=== PATIENT | female | born 1945 | race Caucasian/White ===

== ENCOUNTER 2018-01-26 05:04 | Inpatient (IN) ==
[2018-01-22 14:35] LABS: Appearance,Urine CLEAR; Bilirubin,Urine NEG (NEG); Color,Urine STRAW; Glucose,Urine (UA) NEGATIVE (NEG); Leukocyte Esterase,Urine NEG /uL (NEG); Protein,Urine NEG (NEG); Specific Gravity,Urine 1.009 (1.000-1.035); Urine Blood NEG mg/dL (<0.03); Urobilinogen,Urine NEG (NEG)
[2018-01-22 14:46] LABS: Basophils # (Auto) 0 K/mcL (0.0-0.3); Basophils % (Auto) 0.9 % (0.0-2.0); Eosinophils # (Auto) 0.2 K/mcL (0.0-0.7); Eosinophils % (Auto) 4.4 % (0.0-7.0); Lymphocytes # (Auto) 1.5 K/mcL (1.5-4.8); Lymphocytes % (Auto) 31.5 % (15.5-49.0); Mean Cell Volume 99.8 fL (80.0-100.0); Mean Corpuscular HGB Conc 33.8 g/dL (31.0-36.0); Mean Corpuscular Hemoglobin 33.8 pg (26.0-34.0); Monocytes # (Auto) 0.4 K/mcL (0.1-0.9); Monocytes % (Auto) 8.2 % (1.0-12.0); Platelet Count 234 K/mcL (140-440); Red Cell Distribution Width 12.3 % (11.5-14.5)
[2018-01-22 14:51] LABS: Blood Urea Nitrogen 31 mg/dl (8-23)
[2018-01-26] MEDS ORDERED: oxyCODONE 10 MG TAB.ER.12H PO SCH (07:00)
[2018-01-26] MEDS ORDERED: ACETAMINOPHEN 500 MG TABLET PO SCH (07:00)
[2018-01-26] MEDS ORDERED: PREGABALIN 75 MG CAPSULE PO SCH (07:00)
[2018-01-26] MEDS ORDERED: ceFAZolin 1 GM VIAL IV SCH (07:00)
[2018-01-26] MEDS ORDERED: KETOROLAC 30 MG, ROPIVACAINE HCL/PF 49.5 ML, EPINEPHrine 0.5 MG, 0.9 % SODIUM CHLORIDE ... IV SCH (07:00)
[2018-01-26] MEDS ORDERED: GLYCOPYRROLATE 0.2 MG/ML VIAL IV ONE (07:40)
[2018-01-26] MEDS ORDERED: PHENYLEPHRINE 10 MG/ML VIAL IV ONE (07:40)
[2018-01-26] MEDS ORDERED: ePHEDrine 50 MG/ML AMPUL IV ONE (07:40)
[2018-01-26] MEDS ORDERED: TRANEXAMIC ACID 1,000 MG/10 ML VIAL IV ONE ×2 (07:40→09:53)
[2018-01-26] MEDS ORDERED: PROPOFOL 200 MG/20 ML VIAL IV ONE (07:40)
[2018-01-26] MEDS ORDERED: MIDAZOLAM 2 MG/2 ML VIAL IV ONE (07:40)
[2018-01-26] MEDS ORDERED: DEXAMETHASONE 10 MG/ML VIAL IV ONE (07:40)
[2018-01-26] MEDS ORDERED: ROPIVACAINE HCL/PF 30 ML VIAL IJ ONE (07:40)
[2018-01-26] MEDS ORDERED: LIDOCAINE HCL/PF 100 MG/5 ML SYRINGE IV ONE (07:40)
[2018-01-26] MEDS ORDERED: ONDANSETRON 4 MG/2 ML VIAL IV ONE (07:40)
[2018-01-26] MEDS ORDERED: GENTAMICIN SULFATE 800 MG/20 ML VIAL IR ONE (08:11)
[2018-01-26] MEDS ORDERED: MEPERIDINE 25 MG/ML SYRINGE IV PRN (09:12)
[2018-01-26] MEDS ORDERED: ONDANSETRON 4 MG/2 ML VIAL IV PRN ×2 (09:12→09:53)
[2018-01-26] MEDS ORDERED: diphenhydrAMINE 50 MG/ML VIAL IV PRN (09:12)
[2018-01-26] MEDS ORDERED: PROMETHAZINE 25 MG/ML VIAL IV PRN (09:12)
[2018-01-26] MEDS ORDERED: LACTATED RINGERS 250 ML IV PRN (09:12)
[2018-01-26] MEDS ORDERED: FLUMAZENIL 0.1 MG/ML ML IV PRN (09:12)
[2018-01-26] MEDS ORDERED: NALOXONE HCL 0.4 MG/ML VIAL IV PRN (09:12)
[2018-01-26] MEDS ORDERED: BENZOCAINE/MENTHOL 1 LOZENGE PO PRN ×2 (09:12→09:53)
[2018-01-26] MEDS ORDERED: fentaNYL 100 MCG/2 ML VIAL IV PRN (09:12)
[2018-01-26] MEDS ORDERED: IPRATROPIUM/ALBUTEROL 3 ML AMPUL.NEB NEB PRN (09:12)
[2018-01-26] MEDS ORDERED: LACTATED RINGERS 1,000 ML IV SCH (09:15)
--- NOTE | 2018-01-26 09:50 | XRay Report ---
HISTORY: Reason for Exam:post op FINDINGS: There is a well positioned total knee prosthesis. There is no fracture or abnormal soft tissue calcification. IMPRESSION: Well-positioned left knee prosthesis Interpreted and Authenticated by: Judson Trent 01/26/18
[2018-01-26] MEDS ORDERED: MAGNESIUM HYDROXIDE 30 ML ORAL.SUSP PO PRN (09:53)
[2018-01-26] MEDS ORDERED: BISACODYL 10 MG SUPP.RECT PR PRN (09:53)
[2018-01-26] MEDS ORDERED: HYDROmorphone 2 MG/ML VIAL IV PRN (09:53)
[2018-01-26] MEDS ORDERED: FLEETS ADULT ENEMA PR PRN (09:53)
[2018-01-26] MEDS ORDERED: POLYETHYLENE GLYCOL 3350 17 GM PACKET PO PRN (09:53)
[2018-01-26] MEDS ORDERED: TEMAZEPAM 15 MG CAPSULE PO PRN (09:53)
[2018-01-26] MEDS ORDERED: ACETAMINOPHEN 325 MG TABLET PO PRN (09:53)
--- NOTE | 2018-01-26 10:13 | Brief Operative Note ---
Date of procedure: 01/26/18 Pre-op diagnosis: Left knee djd severe Post-op diagnosis: same Procedure: left tka with raj robot Grafts/Implants: Yes Anesthesia: GETA Complications: none Complications Description: 01/26/18 10:13 none Surgeon: Samson Oakes Field Services Director: Jaswant Powell Estimated blood loss (cc): 10 Tourniquet Time (Minutes): 50 Specimens Removed/Pathology: none sent Condition: stable Disposition: PACU
[2018-01-26] MEDS: 0.45 % SODIUM CHLORIDE 1,000 ML IV SCH ×2 (10:18→20:03)
--- NOTE | 2018-01-26 11:47 | Operative Note ---
DATE OF OPERATION: 01/26/2018 PREOPERATIVE DIAGNOSIS: Left knee degenerative arthritis. POSTOPERATIVE DIAGNOSIS: Left knee degenerative arthritis. PROCEDURE: Left total knee arthroplasty. SURGEON: Samson Oakes M.D. LASER SPECIALIST: Jaswant Powell PA-C. ANESTHESIA: General LMA anesthesia. COMPLICATIONS: None. DESCRIPTION OF PROCEDURE: The patient was brought to the operating room and put to sleep with general LMA anesthesia. Once asleep, the patient had the left leg sterilely prepped and draped in the usual sterile fashion. Once this was done, we then made a midline incision. A timeout had been performed. The knee showed severe arthritis after a mid vastus approach. We exposed the joint, subluxed the patella laterally and performed a robotic total knee by placing the pins above and below the knee. We registered the center of rotation, medial and lateral malleolus, intra-articular pins, and thirty points on the femur and tibia. Once this was all done, we then balanced the knee, both in flexion and extension. She lacked 12 degrees of extension, and because of this we made the cut 2 mm shorter in extension to give her the extra extension. We also removed spurs posteriorly, removed the remnants of the meniscus. The robot was brought in, registered, and then we cut away the bone as preoperatively planned. A size 5 tibial baseplate, rotation set by the robot. Femoral component was placed and a 9 mm insert placed. The patient tolerated this well. We then irrigated thoroughly. Once this was done and the components were trialed, we then cemented into place the above-mentioned sizes. We __ the mid vastus approach with #1 Stratafix. We irrigated thoroughly and then closed the knee with #1 Stratafix x2. We took the knee through range of motion once more. We closed the skin with 2-0 Vicryl and adhesive closure. The patient tolerated this well without complication. RBH:aleksandr Job ID: [id number] Doc ID: [id number] Samson Oakes MD
[2018-01-26] MEDS: KETOROLAC 15 MG/ML VIAL IV SCH ×3 (12:08→23:42)
[2018-01-26] MEDS: 0.9 % SODIUM CHLORIDE 10 ML SYRINGE IV SCH ×2 (14:09→22:12)
[2018-01-26] MEDS: ceFAZolin 1 GM VIAL IV SCH ×2 (16:22→23:41)
[2018-01-26] MEDS: HYDROcodone/APAP 10/325MG TABLET PO PRN ×2 (18:17→20:34)
[2018-01-26] MEDS: MAGNESIUM OXIDE 400 MG TABLET PO SCH (20:04)
[2018-01-26] MEDS: VENLAFAXINE 75 MG TABLET PO SCH (20:04)
[2018-01-26] MEDS: DOCUSATE SODIUM 100 MG CAPSULE PO SCH (20:04)
[2018-01-26] MEDS: CALCIUM W/VIT D3 500 MG TABLET PO SCH (20:04)
[2018-01-26] MEDS: ASPIRIN 325 MG ENTERIC COATED TABLET PO SCH (20:04)
[2018-01-26] MEDS ORDERED: SENNOSIDES 1 TABLET PO SCH (21:00)
[2018-01-26] MEDS ORDERED: NON FORMULARY MEDICATION 1 DOSE MISCELL (Acetaminophen [Acetaminophen Er] 650 MG) PO SCH (21:00)
[2018-01-26] MEDS ORDERED: SIMVASTATIN 40 MG TABLET PO SCH (21:00)
[2018-01-27] MEDS: KETOROLAC 15 MG/ML VIAL IV SCH ×2 (05:44→11:58)
[2018-01-27] MEDS: 0.9 % SODIUM CHLORIDE 10 ML SYRINGE IV SCH ×2 (05:44→15:35)
[2018-01-27] MEDS: 0.45 % SODIUM CHLORIDE 1,000 ML IV SCH (05:45)
[2018-01-27] MEDS: HYDROcodone/APAP 10/325MG TABLET PO PRN ×3 (05:54→12:04)
[2018-01-27] MEDS ORDERED: LEVOTHYROXINE 100 MCG TABLET PO SCH (07:30)
[2018-01-27] MEDS: ASPIRIN 325 MG ENTERIC COATED TABLET PO SCH (08:50)
[2018-01-27] MEDS: CALCIUM W/VIT D3 500 MG TABLET PO SCH (08:50)
[2018-01-27] MEDS: MAGNESIUM OXIDE 400 MG TABLET PO SCH (08:50)
[2018-01-27] MEDS: VENLAFAXINE 75 MG TABLET PO SCH (08:50)
[2018-01-27] MEDS: DOCUSATE SODIUM 100 MG CAPSULE PO SCH (08:50)
[2018-01-27] MEDS ORDERED: LISINOPRIL 20 MG TABLET PO SCH (09:00)
[2018-01-27] MEDS ORDERED: VERAPAMIL HCL 80 MG TABLET PO SCH (09:00)
[2018-01-27] MEDS ORDERED: TORSEMIDE 10 MG TABLET PO SCH (09:00)
--- NOTE | 2018-01-27 12:45 | Discharge Summary ---
Ortho Discharge - TKA - Patient Instructions Diet: Regular Diet Activity: activity as tolerated, weight bearing as tolerated Total Knee Protocol: For Total Knee: Start ROM PAMELA with stationary bike or rocking chair. Work on gaining full extension of knee. Posterior dislocation precautions provided. Hip abductor strengthening and gait training instructions provided. Apply Cryocuff as instructed. Dressing Care: Aniyhael Ag - leave on for 5 days Additional Instructions: Do the exercises at home that physical therapy gave you. Weight bearing as tolerated. Activity as tolerated. Take your prescription, photo ID, insurance cards, and current medication list with you to your first physical therapy appointment. Take your prescription to cotton picker any medication or equipment (such as walker, crutches, toilet riser or C.P.M.) Wear comfortable clothing for your physical therapy. Consider premedicating with pain medication 45 minutes prior to physical therapy appointment. You have Dermabond (a waterproof dressing with a mesh-like appearance) covering your surgical incision. Leave open to air. You may start showering on post op day #2, which is Friday, December 31. The Dermabond dressing can get wet. Do not scrub dressing. Do not use soaps, creams , or lotions over the dressing. Pat dry. No bathing or soaking in hot tub until released by surgeon. To avoid constipation while taking any narcotic pain medication, take an over the counter stool softener/laxative. Use your Cryocuff or ice packs as directed, on for 20 minutes at a time throughout the day. This and elevation will help with pain and swelling. Call your physician for fevers above 100.5 or pain not controlled by medication. Your prescriptions are with your discharge information. Some medications were electronically transmitted to your pharmacy of choice. You will be taking Aspirin 325 mg 2 x daily for 30 days to prevent blood clots. - Follow Up Plan Follow Up Appointments: Jaswant Powell PA-C [Physician Egg Trayer] - 02/10/18 1:40 pm Disposition: Hospice - Home Prognosis: Good Rehab Potential: Good I certify that the patient requires SNF services: No Overall status at discharge: patient is progressing back to baseline - Orders For Discharge Prescriptions: HYDROcodone/APAP 10/325MG [[place] 10-325Mg] 10 - 20 mg PO Q4HP PRN #60 tab PRN Reason: Pain Level 3-6 Additional Discharge Orders: Physical Therapy at Discharge - TKA Location: Determined By Patient Toilet Riser Discharge Order Location: Determined By Patient Walker Location: Determined By Patient
== END 2018-01-27 15:10 | disposition hospice, home (50) | DRG 470 ==
LOC: MEDSUR 05:04
PROVIDERS: ADMIT Orthopaedic Surgery; ATTEND Orthopaedic Surgery

== ENCOUNTER 2018-11-23 10:34 | Inpatient (IN) ==
[2018-11-17 16:13] LABS: Appearance,Urine CLEAR; Bacteria,Urine 0 /hpf (0); Bilirubin,Urine NEG (NEG); Color,Urine STRAW; Glucose,Urine (UA) NEGATIVE (NEG); Leukocyte Esterase,Urine NEG /uL (NEG); Mucus,Urine FEW /hpf (0); Protein,Urine NEG (NEG); Urine Blood 0.03 mg/dL (<0.03); Urine Hyaline Cast 13 /lpf (0-2); Urine RBC 1 /hpf (0-1); Urine Squamous Epithelial Cell < 1 /hpf (0-4); Urine WBC 1 /hpf (0-4); Urobilinogen,Urine NEG (NEG)
[2018-11-17 17:14] LABS: Basophils # (Auto) 0 K/mcL (0.0-0.3); Basophils % (Auto) 0.6 % (0.0-2.0); Eosinophils # (Auto) 0.4 K/mcL (0.0-0.7); Granulocytes % (Auto) 64.3 % (38.0-78.0); Lymphocytes # (Auto) 1.3 K/mcL (1.5-4.8); Lymphocytes % (Auto) 21.5 % (15.5-49.0); Mean Cell Volume 99.7 fL (80.0-100.0); Mean Corpuscular HGB Conc 33.4 g/dL (31.0-36.0); Monocytes # (Auto) 0.4 K/mcL (0.1-0.9); Monocytes % (Auto) 7.6 % (1.0-12.0); Platelet Count 242 K/mcL (140-440)
[2018-11-17 17:36] LABS: Blood Urea Nitrogen 25 mg/dl (8-23)
[~2018-11-23 10:34] MED LIST: ACETAMINOPHEN 500 MG TABLET PO SCH; PREGABALIN 75 MG CAPSULE PO SCH; ceFAZolin 2 GM in DEXTROSE 5% IN WATER 50 ML IV SCH; oxyCODONE 10 MG TAB.ER.12H PO SCH
[2018-11-23] MEDS ORDERED: PROPOFOL 200 MG/20 ML VIAL IV ONE (13:35)
[2018-11-23] MEDS ORDERED: PHENYLEPHRINE 10 MG/ML VIAL ONE (13:35)
[2018-11-23] MEDS ORDERED: GLYCOPYRROLATE 0.2 MG/ML VIAL IV ONE (13:35)
[2018-11-23] MEDS ORDERED: LIDOCAINE HCL/PF 100 MG/5 ML SYRINGE IV ONE (13:35)
[2018-11-23] MEDS ORDERED: DEXAMETHASONE 10 MG/ML VIAL ONE (13:35)
[2018-11-23] MEDS ORDERED: SUCCINYLCHOLINE 20 MG/ML ML IV ONE (13:35)
[2018-11-23] MEDS ORDERED: fentaNYL 100 MCG/2 ML VIAL IV ONE (13:35)
[2018-11-23] MEDS ORDERED: ePHEDrine 50 MG/ML AMPUL IV ONE (13:35)
[2018-11-23] MEDS ORDERED: MIDAZOLAM 5 MG/5 ML VIAL ONE (13:35)
[2018-11-23] MEDS ORDERED: ONDANSETRON 4 MG/2 ML VIAL ONE (13:35)
[2018-11-23] MEDS ORDERED: GENTAMICIN SULFATE 800 MG/20 ML VIAL IR ONE (14:08)
[2018-11-23] MEDS ORDERED: FLUMAZENIL 0.1 MG/ML ML IV PRN (14:20)
[2018-11-23] MEDS ORDERED: MEPERIDINE 25 MG/ML SYRINGE IV PRN (14:20)
[2018-11-23] MEDS ORDERED: ONDANSETRON 4 MG/2 ML VIAL IV PRN ×2 (14:20→15:50)
[2018-11-23] MEDS ORDERED: METHOCARBAMOL 1,000 MG/10 ML VIAL IV PRN (14:20)
[2018-11-23] MEDS ORDERED: IPRATROPIUM/ALBUTEROL 3 ML AMPUL.NEB NEB PRN (14:20)
[2018-11-23] MEDS ORDERED: METOPROLOL TARTRATE 5 MG/5 ML VIAL IV PRN (14:20)
[2018-11-23] MEDS ORDERED: NALOXONE HCL 0.4 MG/ML VIAL IV PRN (14:20)
[2018-11-23] MEDS ORDERED: ATROPINE SULFATE 0.4 MG/ML VIAL IV PRN (14:20)
[2018-11-23] MEDS ORDERED: diphenhydrAMINE 50 MG/ML VIAL IV PRN (14:20)
[2018-11-23] MEDS ORDERED: ePHEDrine 50 MG/ML AMPUL IV PRN (14:20)
[2018-11-23] MEDS ORDERED: PROMETHAZINE 25 MG/ML VIAL IV PRN (14:20)
[2018-11-23] MEDS ORDERED: LACTATED RINGERS 1,000 ML IV SCH (14:30)
--- NOTE | 2018-11-23 15:45 | Brief Operative Note ---
Date of procedure: 11/23/18 Pre-op diagnosis: right shoulder rca and bicep tear Post-op diagnosis: same Procedure: right reverse tsa with bicep tear repair or tenodesis Grafts/Implants: Yes Anesthesia: CLARITZA Surgeon: Samson Oakes Registered Diet Technician: Jaswant Powell Estimated blood loss (cc): 100 Specimens Removed/Pathology: none sent Condition: stable Disposition: PACU
[2018-11-23] MEDS ORDERED: MAGNESIUM HYDROXIDE 30 ML ORAL.SUSP PO PRN (15:50)
[2018-11-23] MEDS ORDERED: POLYETHYLENE GLYCOL 3350 17 GM PACKET PO PRN (15:50)
[2018-11-23] MEDS ORDERED: BENZOCAINE/MENTHOL 1 LOZENGE PO PRN (15:50)
[2018-11-23] MEDS ORDERED: TRANEXAMIC ACID 1,000 MG/10 ML VIAL IV SCH (15:50)
[2018-11-23] MEDS ORDERED: HYDROmorphone 2 MG/ML VIAL IV PRN (15:50)
[2018-11-23] MEDS ORDERED: BISACODYL 10 MG SUPP.RECT PR PRN (15:50)
[2018-11-23] MEDS ORDERED: FLEETS ADULT ENEMA PR PRN (15:50)
[2018-11-23] MEDS ORDERED: ACETAMINOPHEN 325 MG TABLET PO PRN (15:50)
[2018-11-23] MEDS: fentaNYL 100 MCG/2 ML VIAL IV PRN ×4 (15:59→16:11)
--- NOTE | 2018-11-23 16:15 | Operative Note ---
DATE OF OPERATION: 11/23/2018 PREOPERATIVE DIAGNOSES: Right shoulder rotator cuff arthropathy and a biceps tendinopathy or tear. POSTOPERATIVE DIAGNOSES: Right shoulder rotator cuff arthropathy and a biceps tendinopathy or tear. PROCEDURE: Right reverse total shoulder arthroplasty with a biceps tenodesis. SURGEON: Samson Oakes M.D. CUP SETTER LOCKSTITCH: Jaswant Powell PA-C. ANESTHESIA: General LMA anesthesia. COMPLICATIONS: None. DESCRIPTION OF PROCEDURE: The patient was brought to the operating room and put to sleep with general LMA anesthesia. Once asleep, the patient had the right shoulder sterilely prepped and draped in the usual sterile fashion. A timeout was performed. We confirmed the operative site by initials, consent form and x-rays. Once done, we then proceeded with the case. A deltopectoral approach was placed, retracting the cephalic vein laterally. We exposed the anterior capsule. The subscap was released and subluxed the humeral head anteriorly. We made our cut at 135 degree angle with 20 degrees of retroversion. Once done, we placed a protective plate and subluxed the head posteriorly. We then reamed centrally on the humeral head and released the capsule with a 360 degree capsular release, as well as a biceps tendon release. There was noted to be a complete tear of the supraspinatus and infraspinatus. We reamed up to the size 36. A Metaglene was placed at 10 degrees of inclination with a 32 mm central screw. Three additional screws measuring 24, 32 and 32 were placed with a 36 mm humeral head with a glenosphere with 2 mm of offset and 2 mm of the eccentricity. Once this was placed, we irrigated thoroughly and then prepared the humerus. This was broached up to the size of 10. We then placed a size 10 after trialing the standard thickness poly. We placed a small amount of cement distally for fixation purposes because of the soft bone. We placed the stem and placed a standard thickness poly in 20 degrees of retroversion. This was reduced and this gave excellent stability with full range of motion achieved. We irrigated thoroughly. We did not repair the subscap. We did repair the biceps tendon to the pectoralis major with [id number] stitches x2. Once this was repaired using Ethibond stitch, we irrigated thoroughly and then closed the deltoid pec interval with 2-0 Vicryl. The skin was closed with 2-0 Vicryl and adhesive closure. The patient tolerated this well. There was no complication. A DonJoy sling was fitted and given to the patient at the end of the case. ZACHARY:aleksandr Job ID: [id number] Doc ID: [id number] Samson Oakes MD
[2018-11-23] MEDS: 0.45 % SODIUM CHLORIDE 1,000 ML IV SCH (16:25)
--- NOTE | 2018-11-23 16:33 | XRay Report ---
CLINICAL INFORMATION: Post-OP Total Shoulder COMPARISON: None. FINDINGS: Total shoulder prostheses is anatomically aligned. Acromioplasty changes noted. No osseous abnormality. Soft tissue swelling seen as expected. IMPRESSION: Negative Interpreted and Authenticated by: Juan Daniel Drew 11/23/18
[2018-11-23] MEDS: KETOROLAC 15 MG/ML VIAL IV PRN (18:00)
[2018-11-23] MEDS: HYDROCODONE/APAP 7.5/325MG TABLET PO PRN (20:09)
[2018-11-23] MEDS: DOCUSATE SODIUM 100 MG CAPSULE PO SCH (20:58)
[2018-11-23] MEDS: MAGNESIUM OXIDE 400 MG TABLET PO SCH (20:59)
[2018-11-23] MEDS: VENLAFAXINE 75 MG TABLET PO SCH (20:59)
[2018-11-23] MEDS: CALCIUM W/VIT D3 500 MG TABLET PO SCH (20:59)
[2018-11-23] MEDS ORDERED: SENNOSIDES 1 TABLET PO SCH (21:00)
[2018-11-23] MEDS ORDERED: VERAPAMIL HCL 80 MG TABLET PO SCH (21:00)
[2018-11-23] MEDS ORDERED: ACETAMINOPHEN 325 MG TABLET PO SCH (21:00)
[2018-11-23] MEDS ORDERED: TEMAZEPAM 15 MG CAPSULE PO PRN (21:00)
[2018-11-23] MEDS ORDERED: SIMVASTATIN 40 MG TABLET PO SCH (21:00)
[2018-11-23] MEDS: ceFAZolin 1 GM VIAL IV SCH (21:06)
[2018-11-24] MEDS: 0.9 % SODIUM CHLORIDE 10 ML SYRINGE IV SCH ×2 (00:49→05:32)
[2018-11-24] MEDS: HYDROCODONE/APAP 7.5/325MG TABLET PO PRN ×3 (00:50→09:55)
[2018-11-24] MEDS: KETOROLAC 15 MG/ML VIAL IV PRN (00:51)
[2018-11-24] MEDS: 0.45 % SODIUM CHLORIDE 1,000 ML IV SCH (00:59)
[2018-11-24] MEDS: ceFAZolin 1 GM VIAL IV SCH (05:30)
[2018-11-24] MEDS ORDERED: LEVOTHYROXINE 100 MCG TABLET PO SCH (07:30)
--- NOTE | 2018-11-24 07:31 | Orthopedic Progress Note ---
Subjective Patient information: Note initiated : 11/24/18 at 7:30 am Service Date, if different from initiated Date: [] Patient: Shakira Cisneros 73 y/o F admitted on 11/23/18 for Right Reverse Total Shoulder Arthroplasty with. Chief Complaint: [Pt is stable this morning on post operative day 1 without any significant concerns or complaints. Patients vital signs have remained stable. Patients dressing is dry and is grossly intact from a neur ovascular and motor standpoint. Patients 10 point ROS is otherwise negative. ] Objective Vital signs: Vital Signs Temp Pulse Pulse Pulse Resp BP Pulse Ox 11/24/18 07:05 16 99 11/24/18 04:00 98.4 F 64 18 124/68 93 11/24/18 02:24 72 18 125/70 93 11/24/18 02:22 76 18 131/72 94 11/24/18 00:30 97.6 F 70 12 115/65 93 11/23/18 20:00 72 11/23/18 19:00 73 18 121/69 93 11/23/18 18:30 70 18 130/72 93 11/23/18 18:00 91 H 16 128/73 91 11/23/18 17:45 74 16 130/69 11/23/18 17:30 74 16 135/75 96 11/23/18 17:15 75 16 138/71 96 11/23/18 17:00 72 16 140/74 96 11/23/18 16:45 75 16 136/65 95 11/23/18 16:30 74 16 146/77 96 11/23/18 16:15 97.4 F 73 11 L 144/68 98 11/23/18 16:00 97.5 F 75 12 133/56 95 11/23/18 15:45 97.4 F 75 15 148/80 100 11/23/18 15:30 97.3 F 69 12 142/80 100 11/23/18 15:25 70 13 139/76 100 11/23/18 15:20 73 11 L 126/71 100 11/23/18 15:15 97.3 F 74 17 123/70 99 11/23/18 10:45 97.8 F 16 130/74 98 Intake and Output 11/23/18 11/24/18 11/24/18 21:59 05:59 13:59 Intake Total 3400 1057 Output Total 275 150 Balance 3125 907 Intake: IV 857 Sodium Chloride 0.45% 1,000 ml 857 @ 100 mls/hr IV .Q10H LORENA Rx#: [id number] Oral 800 200 IV - Manual Only 2600 Output: Void Amount 275 150 Other: Meal had egg sandwich and yogurt; tolerated well Percent of Meal Consumed 100% Feeding Ability Independent # Voids 1 Weight 158 lb Intake & Output: Intake & Output 11/23/18 11/24/18 11/24/18 21:59 05:59 13:59 Intake Total 3400 1057 Output Total 275 150 Balance 3125 907 Weight 158 lb Intake: IV 857 Sodium Chloride 0.45% 1,000 ml 857 @ 100 mls/hr IV .Q10H LORENA Rx#: [id number] Oral 800 200 IV - Manual Only 2600 Output: Void Amount 275 150 Other: Meal had egg sandwich and yogurt; tolerated well Percent of Meal Consumed 100% Feeding Ability Independent # Voids 1 Incision: Yes healing Incision clean and dry: Yes Dressing: Yes clean Weight bearing status: full Neurological exam IM: Yes motor sensory intact, Yes neurovascular intact Extremities exam IM: Yes neurovascular intact - Labs CBC & BMP: 11/17/18 14:37 11/17/18 14:37 Labs: 11/17/18 14:37 Hgb 12.0 Hct 35.9 L Assessment and Plan (1) History of reverse total replacement of right shoulder joint The patient has been educated regarding dressing care, Physical Therapy recommendations, home exercises, restrictions, and follow up appointments. The patient has had all necessary DME prescribed. The patient has remained relativel y stable during their hospital course. Status: Acute
--- NOTE | 2018-11-24 07:36 | Discharge Summary ---
Ortho Discharge - TSA - Patient Instructions Diet: Regular Diet Activity: activity as tolerated, weight bearing as tolerated Total Shoulder Protocol: Leave immobilizer in place except for bathing and ROM. Abduction pillow. Continue to wear sling until seen by physician. Codman Pendulum : These exercises use momentum produced by your body to move your shoulder joint. Bend your knees and shift your weight to your front leg, then back, allowing your arm to swing in the same directions. Using the same technique, alternately shift your weight between your right and left legs, allowing your arm to swing from side to side. These exercises are also performed in counterclockwise and clockwise circular motions. Typically these exercises are performed several times per day, for a set number repetitions or minutes, such as 20 times in a row or 5 minutes at a time. Dressing Care: May shower in 2 days - Problem Maintenance (1) History of reverse total replacement of right shoulder joint Status: Acute - Follow Up Plan Follow Up Appointments: Jaswant Powell PA-C [Physician Suspender Cutter] - 12/08/18 11:20 am Disposition: Home, Self-Care Prognosis: Good Rehab Potential: Good I certify that the patient requires SNF services: No Overall status at discharge: patient is progressing back to baseline - Orders For Discharge Prescriptions: Docusate Sodium [Colace] 100 mg PO BID #60 cap Hydrocodone/APAP 7.5/325Mg [[place] 7.5-325Mg] 1 - 2 tab PO Q4HP PRN #75 tab PRN Reason: Pain Level 3-6
[2018-11-24] MEDS ORDERED: LISINOPRIL 20 MG TABLET PO SCH (09:00)
[2018-11-24] MEDS ORDERED: TORSEMIDE 10 MG TABLET PO SCH (09:00)
[2018-11-24] MEDS: CALCIUM W/VIT D3 500 MG TABLET PO SCH (09:55)
[2018-11-24] MEDS: MAGNESIUM OXIDE 400 MG TABLET PO SCH (09:55)
[2018-11-24] MEDS: DOCUSATE SODIUM 100 MG CAPSULE PO SCH (09:56)
[2018-11-24] MEDS: VENLAFAXINE 75 MG TABLET PO SCH (09:57)
== END 2018-11-24 10:30 | disposition home or self-care (01) | DRG 483 ==
LOC: MEDSUR 10:34
PROVIDERS: ADMIT Orthopaedic Surgery; ATTEND Orthopaedic Surgery